=== PATIENT | female | born 1965 | race African-American/Black ===

== ENCOUNTER 2024-10-25 16:52 | Emergency (ER) | payer MEDICAID ==
[~2024-10-25] VITALS: Ht 121.9 cm; Wt 58.0 kg
[2024-10-25 16:56] VITALS: O2SAT 100
[2024-10-25 17:07] VITALS: BP 139/94; PULSE 101; RESP 18; TEMP 36.7; O2SAT 97
[2024-10-25 17:47] LABS: CLARITY URINE CLOUDY (CLEAR); COLOR URINE ORANGE (YELLOW); GLUCOSE URINE NEGATIVE (NEGATIVE); KETONES URINE NEGATIVE (NEGATIVE); LEUKOCYTE ESTERASE URINE 2+ (NEGATIVE); NITRITE URINE NEGATIVE (NEGATIVE); OCCULT BLOOD URINE NEGATIVE (NEGATIVE); PH URINE 8.5 (4.5-8.0); PROTEIN URINE 1+ (NEGATIVE); SPECIFIC GRAVITY URINE 1.011 (1.005-1.030)
[2024-10-25 17:52] LABS: BASOPHILS % 0.7 % (0.0-2.0); EOSINOPHILS % 1.7 % (0.0-5.0); HEMATOCRIT. 43.8 % (36.0-48.0); HEMOGLOBIN. 14.6 g/dL (12.0-16.0); LYMPHOCYTES % 27.7 % (20.0-50.0); MEAN CORPUSCULAR HEMOGLOBIN 29.7 pg (28.0-32.0); MEAN CORPUSCULAR HGB CONC 33.4 g/dL (31.0-37.0); MEAN PLATELET VOLUME 9.4 fl (7.4-10.4); NEUTROPHILS % 61.9 % (40.0-76.0); PLATELET 267 x1000/uL (130-400); RED BLOOD CELL COUNT 4.92 mill/uL (4.2-5.4); WHITE BLOOD COUNT 13.4 x1000/uL (4.5-11.0)
[2024-10-25 18:01] LABS: CHLORIDE 102 mEq/L (98-107); POTASSIUM 3.4 mEq/L (3.5-5.1); SODIUM 135 mEq/L (136-145)
[2024-10-25 18:02] LABS: CARBON DIOXIDE 23 mEq/L (21-32)
[2024-10-25 18:04] LABS: BACTERIA URINE 1+; RBC URINE NONE SEEN /hpf (0-2); SQUAMOUS EPITHELIAL CELL URINE 1+ /lpf (RARE/1+)
[2024-10-25 18:07] LABS: CREATININE 0.7 mg/dL (0.6-1.0); GLUCOSE 153 mg/dL (70-105); UREA NITROGEN BLOOD 24 mg/dL (9-23)
[2024-10-25] MEDS ORDERED: CEPH500T MT (19:52)
== END 2024-10-25 20:32 | disposition home or self-care (01) ==
LOC: ER 16:52
DX: N32.0 Bladder-neck obstruction (principal); R51.9 Headache, unspecified; N39.0 Urinary tract infection, site not specified; E11.9 Type 2 diabetes mellitus without complications; I10 Essential (primary) hypertension; J45.909 Unspecified asthma, uncomplicated; Z89.611 Acquired absence of right leg above knee; Z89.612 Acquired absence of left leg above knee; Z79.899 Other long term (current) drug therapy
CPT/HCPCS: 36415; 51702; 74176; 80048; 81003; 85025; 99284

== ENCOUNTER 2024-11-09 13:11 | Emergency (ER) | payer MEDICAID ==
[~2024-11-09] VITALS: Ht 104.1 cm; Wt 58.0 kg
[~2024-11-09 13:11] MED LIST: CEPH500T MT
[2024-11-09 13:12] VITALS: O2SAT 99
[2024-11-09 13:18] VITALS: BP 95/61; PULSE 61; RESP 18; TEMP 36.8; O2SAT 99
== END 2024-11-09 16:49 | disposition home or self-care (01) ==
LOC: ER 13:11
DX: R33.9 Retention of urine, unspecified (principal); Z46.6 Encounter for fitting and adjustment of urinary device; M25.532 Pain in left wrist; E11.9 Type 2 diabetes mellitus without complications; I10 Essential (primary) hypertension; J45.909 Unspecified asthma, uncomplicated; Z79.4 Long term (current) use of insulin; Z89.611 Acquired absence of right leg above knee; Z89.612 Acquired absence of left leg above knee
CPT/HCPCS: 73110; 99283